=== PATIENT | female | born 1945 | race Caucasian/White ===

== ENCOUNTER 2016-07-29 07:50 | Day surgery (SDC) | payer MEDICARE ==
[~2016-07-29] VITALS: Ht 154.9 cm; Wt 82.6 kg
[~2016-07-29 07:50] MED LIST: ALLEGRA-D 2424 HOUR PO; AMLOD/BENAZP1 CA1 PO; ASPIRIN EC81 MG PO; CLOPIDOGREL75 MG PO; CORTISPORIN OP7.5 ML OP; DOXYCYC MONO100 M1 PO; FLEXERIL PO; LISINOP/HCTZ1 TAB PO; Levaquin PO; METOPROLOL SUCC50 MG PO; NAPROSYN500 MG PO; NASONEX50 MCG/AC NAB; PROTONIX40 M2 PO; SIMVASTATIN40 MG PO; TESSALON PER100 MG PO; ZITHROMAX250 MG PO; ZITHROMAX500 MG PO
[2016-07-29 10:12] VITALS: BP 125/58
== END 2016-07-29 10:23 | disposition home or self-care (01) ==
LOC: ENDO 07:50 → ORM 08:30 → ENDO 10:15
PROVIDERS: ATTEND Internal Medicine Gastroenterology
PROC: 0DBE8ZX Excision of Large Intestine, Via Natural or Artificial Opening Endoscopic, Diagnostic (ICD-10-PCS; principal; 2016-07-29)
PROC: 0DBL8ZX Excision of Transverse Colon, Via Natural or Artificial Opening Endoscopic, Diagnostic (ICD-10-PCS; 2016-07-29)
DX: R19.7 Diarrhea, unspecified (principal); K62.5 Hemorrhage of anus and rectum; K58.9 Irritable bowel syndrome, unspecified; R15.2 Fecal urgency; K21.9 Gastro-esophageal reflux disease without esophagitis; K59.00 Constipation, unspecified; K64.4 Residual hemorrhoidal skin tags; D12.3 Benign neoplasm of transverse colon; K57.30 Diverticulosis of large intestine without perforation or abscess without bleeding; K64.8 Other hemorrhoids; I25.10 Atherosclerotic heart disease of native coronary artery without angina pectoris; E78.00 Pure hypercholesterolemia, unspecified; I10 Essential (primary) hypertension; Z95.2 Presence of prosthetic heart valve

== ENCOUNTER 2019-06-02 | Emergency (ER) | payer MEDICARE ==
[2019-06-02] MEDS ORDERED: NORVASC5 M1 PO (13:57)
[2019-06-02] MEDS ORDERED: BINOSTO70 MG PO (13:58)
[2019-06-02 14:29] LABS: HEMATOCRIT 38.3 % (37.0-47.0); HEMOGLOBIN 12.5 g/dl (12.0-16.0); IMMATURE GRANULOCYTES 0.3 % (0.0-5.0); MEAN CELL VOLUME 90.3 fL CALC (80.0-100.0); MEAN CORPUSCULAR HGB 29.5 pG CALC (26.0-32.0); MEAN CORPUSCULAR HGB CONC 32.6 g/dL CAL (32.0-36.0); NEUT# 4.42 thou/uL (2.00-7.15); RED BLOOD COUNT 4.24 mill/uL (4.20-5.60)
[2019-06-02 14:49] LABS: ALKALINE PHOSPHATASE 74 u/l (38-126); ANION GAP 11 (6-22 (CALC)); BILIRUBIN, TOTAL 0.9 mg/dL (0.0-1.4); BUN 15 mg/dL (8-23); BUN/CREATININE RATIO 23 (12-20 (CALC)); CARBON DIOXIDE 24 mmol/l (22-30); CHLORIDE 107 mmol/l (95-108); CREATININE 0.7 mg/dL (0.5-1.0); GFR > 60 ML/MIN (>=60 (CALC)); GFR FOR AFR.AMER. > 60 ML/MIN (>=60 (CALC)); LIPASE 41 u/l (23-300); POTASSIUM 3.9 mmol/l (3.5-5.1); SGOT/AST 17 u/l (9-36); SODIUM 138 mmol/l (137-146); TOTAL PROTEIN 6.8 g/dL (6.3-8.2)
[2019-06-02 16:41] LABS: URINE BILIRUBIN - DIPSTICK NEGATIVE (NEGATIVE); URINE BLOOD DIPSTICK MODERATE (NEGATIVE); URINE COLOR YELLOW; URINE GLUCOSE - DIPSTICK NEGATIVE (NEGATIVE); URINE KETONE NEGATIVE (NEGATIVE); URINE LEUK ESTERASE NEGATIVE (NEGATIVE); URINE NITRITE - DIPSTICK NEGATIVE (Negative); URINE PROTEIN - DIPSTICK NEGATIVE (NEG-TRACE); URINE SPECIFIC GRAVITY <=1.005; URINE UROBILINOGEN - DIPSTICK 0.2 E.U./dL (0.2)
[2019-06-02] MEDS ORDERED: METRONIDAZOL500 MG PO (16:41)
[2019-06-02] MEDS ORDERED: CIPROFLOXACN500 MG PO (16:41)
[2019-06-02] MEDS ORDERED: ONDANSETRON4 MG PO (16:41)
[2019-06-02 16:49] LABS: URINE SQUAMOUS EPITHELIAL CELL FEW EPI/hpf (0-FEW)
== END 2019-06-02 17:13 | disposition home or self-care (01) ==
PROVIDERS: Family Medicine
DX: K57.32 Diverticulitis of large intestine without perforation or abscess without bleeding (principal); R31.9 Hematuria, unspecified; I10 Essential (primary) hypertension; I25.10 Atherosclerotic heart disease of native coronary artery without angina pectoris
CPT/HCPCS: Q9967